=== PATIENT | male | born 1955 | race American Indian/Alaskan Native ===

== ENCOUNTER 2019-03-23 12:02 | Outpatient (CLI) | payer OTHER ==
[2019-03-23 12:50] LABS: Blood Urea Nitrogen 7 mg/dL (9-20)
--- NOTE | 2019-03-23 14:12 | Cat Scan Report ---
CT chest with contrast INDICATION : Shortness of breath TECHNIQUE: 100 mL of intravenous contrast administered. All CT scans at this location are performed using CT dose reduction for ALARA by means of automated exposure control. COMPARISON: None FINDINGS: There are a few scattered areas of mild emphysematous type change within both lungs. Linear stranding within the posterior lateral right lung base appears most consistent with an area of scarring. No di screte pulmonary mass or nodule. No focal pulmonary consolidation or edema. No pleural effusion or p neumothorax. Heart is within normal limits in terms of size. No evidence of pericardial effusion. No mediastinal o r axillary lymphadenopathy. Osseous structures show no evidence acute fracture or aggressive osseous destructive lesion. Limited evaluation of upper abdomen demonstrates a subcentimeter hypodensity within the posterior rig ht hepatic lobe. This is too small to accurately characterize on current exam, but likely represents a cyst. Additionally, there is atrophic appearance of the pancreas with dilated pancreatic duct and m ultiple coarse-appearing calcifications throughout the pancreatic body. The appearance is most consis tent with sequela of chronic pancreatitis. A few linear metallic densities anterior to the stomach li pillo represent site of prior surgery or prior gastric tube placement. IMPRESSION: No acute findings within the chest. There are scattered areas of mild emphysematous change within both lungs. No discrete mass or pulmona ry nodule. No focal pulmonary consolidation or edema. The pancreas demonstrates atrophic appearance with dilated pancreatic duct and scattered coarse pancr eatic calcifications. The appearance is most consistent with sequela of chronic pancreatitis. Recomme nd clinical correlation with patient's history. Signer Name: Antoine Pena MD Signed: 03/23/2019 2:08 PM Workstation Name: [id number]
== END 2019-03-23 12:03 | disposition home or self-care (01) ==
LOC: CT 12:02
PROVIDERS: ATTEND Adult Companion
DX: Z01.89 Encounter for other specified special examinations (principal); J43.9 Emphysema, unspecified
CPT/HCPCS: 36415; 71260; 82565; 84520; Q9967

== ENCOUNTER 2019-05-10 09:24 | Outpatient (CLI) | payer OTHER, MEDICARE ==
[2019-05-10 10:59] LABS: Blood Urea Nitrogen 10 mg/dL (9-20)
--- NOTE | 2019-05-10 12:06 | Cat Scan Report ---
CT CHEST WITH CONTRAST INDICATION / CLINICAL INFORMATION: ENCOUNTER FOR OTHER SPECIFIED SPECIAL EXAMINATIONS. TECHNIQUE: Axial CT images were obtained through the chest after 100 cc Omnipaque 300 IV contrast. Sagittal and coronal reformatted images. All CT scans at this location are performed using CT dose reduction for A KIM by means of automated exposure control. COMPARISON: 03/23/2019 FINDINGS: HEART: No significant abnormality. THORACIC AORTA: No significant abnormality. MEDIASTINUM and CEZAR: No significant abnormality. LUNGS: Minimal emphysematous changes are again noted bilaterally. No evidence for suspicious nodule, mass or infiltrate. Minor linear subpleural scarring in the posterior right lower lobe is again noted . PLEURA: No significant pleural effusion. No pneumothorax. SKELETAL SYSTEM: No significant abnormality. UPPER ABDOMEN: No acute process. Chronic pancreatitis findings are again noted. ADDITIONAL FINDINGS: None. IMPRESSION: No change since 03/23/2019. Minimal emphysematous changes. Minor linear scarring in the right lower lobe. Chronic pancreatitis. Signer Name: Ari Villalta Jr, MD Signed: 05/10/2019 12:01 PM Workstation Name: [id number]
== END 2019-05-10 09:25 | disposition home or self-care (01) ==
LOC: CT 09:24
PROVIDERS: ATTEND Orthopaedic Surgery
DX: Z01.89 Encounter for other specified special examinations (principal); J43.8 Other emphysema; K85.90 Acute pancreatitis without necrosis or infection, unspecified
CPT/HCPCS: 36415; 71260; 82565; 84520; Q9967